=== PATIENT | female | born 1960 | race Caucasian/White ===

== ENCOUNTER 2019-08-28 08:52 | Outpatient (CLI) | payer OTHER, SELFPAY ==
--- NOTE | ~2019-08-28 | CT_ITS ---
EXAMINATION: CT lung screening DATE: 08/28/2019 09:10 INDICATION: Z87.891 Personal history of nicotine dependence TECHNIQUE: Computed tomography (CT) of the chest was performed without intravenous contrast utilizing a standard low-dose lung cancer screening protocol. Additional 3D reconstructions utilizing coronal maximum intensity projection (MIP) were performed. Automated exposure control and iterative reconstru ction technique were employed. The dose-length product was 292.09 mGy-cm. COMPARISON: 10/13/2016 FINDINGS: Mild paraseptal emphysema at the apices of the lungs. 3 small nodules measuring up to 2 mm at the ant erior right apex which are unchanged since 2017 consistent with noncalcified granulomata. No new or e nlarging pulmonary nodules identified. No pneumonia, pulmonary edema, pleural effusion or pneumothora x. Heart size is normal. Atherosclerotic coronary artery calcification. No pericardial effusion. Thor acic aorta is normal in caliber. No pathologically enlarged thoracic lymphadenopathy. Diffuse hepatic steatosis with geographic regions of focal sparing. Thoracic dextroscoliosis with severe spondylosis . IMPRESSION: 1. Lung-RADS category 2: Benign appearance or behavior. Continue annual screening with noncontrast lo w-dose chest CT in 12 months. Reviewed, dictated and finalized at location A. ERECTOR IMPRESSION: 1. Lung-RADS category 2: Benign appearance or behavior. Continue annual screeni ng with noncontrast low-dose chest CT in 12 months.
== END 2019-08-28 08:53 | disposition home or self-care (01) ==
PROVIDERS: PCP Family Medicine; Visit Provider Family Medicine
DX: Z12.2 Encounter for screening for malignant neoplasm of respiratory organs (principal); Z87.891 Personal history of nicotine dependence
CPT/HCPCS: G0297

== ENCOUNTER 2019-09-17 10:17 | Outpatient (CLI) | payer OTHER, SELFPAY ==
--- NOTE | ~2019-09-17 | MM_ITS ---
EXAMINATION: MM screening [facility] [place] BI w dada HISTORY: Screening mammogram, family history of breast cancer in her mother. TECHNIQUE: Craniocaudal and mediolateral oblique 3-D tomosynthesis images were obtained and synthetic 2-D images were generated. CAD analysis was submitted and interpreted. COMPARISON: 08/30/2018, 08/30/2017, 08/22/2017, 02/16/2016 BREAST PARENCHYMAL COMPOSITION: There are scattered areas of fibroglandular density. FINDINGS: Biopsy changes are noted in both breasts. There is no evidence of suspicious mass, calcific ation, or architectural distortion to suggest malignancy in either breast. There has been no suspicio us interval change. IMPRESSION: 1. No mammographic evidence of malignancy. 2. Recommend routine screening mammography in one year. BI-RADS Category 2: Benign finding(s). Reviewed, dictated and finalized at location A.
== END 2019-09-17 10:18 | disposition home or self-care (01) ==
LOC: ANHIMG 10:20
PROVIDERS: PCP Family Medicine; Visit Provider Family Medicine
DX: Z12.31 Encounter for screening mammogram for malignant neoplasm of breast (principal)
CPT/HCPCS: 77063; 77067

== ENCOUNTER 2020-06-12 13:29 | Outpatient (CLI) | payer OTHER, SELFPAY ==
--- NOTE | 2020-06-12 13:43 | ECHO_ITS ---
Patient Info Name: Corrine Zimmer Age: 60 years : 1960 Gender: Female Ht: 68 in Wt: 255 lbs BSA: 2.41 m2 HR: 103 bpm BP: 141 / 71 mmHg Heart Rhythm: Sinus Rhythm Technical Quality: Fair Exam Date: 06/12/2020 1:52 PM Exam Location: [facility] Pul[facility] Patient Status: Outpatient Admit Date: 06/12/2020 Staff Ordering Physician: Radha Howell NP Stereo Compiler: Gina Mckeon RCS Attending Provider: Radha Howell NP Referring Physician: Lynda HERNANDEZ; Exam Type: CA echo doppler color flow Study Info Indications R60.0 - Localized edema Complete two-dimensional, color flow and Doppler transthoracic echocardiogram is performed. Summary 1. Complete two-dimensional, color flow and Doppler transthoracic echocardiogram is performed. 2. Left ventricular chamber dimension is normal. 3. Left ventricular systolic function is normal, estimated at 60-65%. 4. There is mildly increased left ventricular wall thickness. 5. The left ventricular diastolic function is grade I diastolic dysfunction. 6. E/e' 7 is not elevated. 7. There is mild aortic valve sclerosis. Left Ventricle E/e' 7 is not elevated. Left ventricular chamber dimension is normal. Left ventricular systolic function is normal, estimated at 60-65%. There is mildly increased left ventricular wall thickness. The left ventricular diastolic function is grade I diastolic dysfunction. Right Ventricle Right ventricular chamber dimension is normal. Right ventricular systolic function is normal. Left Atria Left atrial chamber dimension is normal. Right Atria Right atrial chamber dimension is normal. Aortic Valve The aortic valve is probable trileaflet. There is mild aortic valve sclerosis. There is no aortic valve stenosis. There is no aortic valve regurgitation. Pulmonic Valve There is no pulmonic regurgitation. Mitral Valve There is no mitral valve stenosis. There is no mitral valve regurgitation. Tricuspid Valve There is no tricuspid valve regurgitation. Pericardium/Pleural There is no pericardial effusion. Inferior Vena Cava Inferior vena cava is not well visualized. Aorta The aortic root size at the sinus of Valsalva is not well visualized. Left Ventricular Outflow Tract Name Value Normal LVOT 2D LVOT Diameter 2.0 cm LVOT Doppler LVOT Peak Gradient 6 mmHg LVOT Mean Gradient 3 mmHg LVOT VTI 23 cm LVOT VTI/AV VTI Ratio 0.9 LVOT Stroke Volume 72 ml LVOT CO 6.8 l/min LVOT CI 2.8 l/min/m2 Mitral Valve Name Value Normal MV Doppler MV Decel [place] 249 cm/s2 MV PHT 68 ms
== END 2020-06-12 13:30 | disposition home or self-care (01) ==
PROVIDERS: PCP Family Medicine; Visit Provider Nurse Practitioner Family
DX: R60.0 Localized edema (principal); R06.00 Dyspnea, unspecified
CPT/HCPCS: 93306

== ENCOUNTER → 2021-01-22 13:17 | Outpatient (CLI) | payer OTHER, SELFPAY ==
--- NOTE | ~2021-01-22 | CT_ITS ---
EXAMINATION:CT lung screening DATE: 01/22/2021 13:33 INDICATION: Nicotine dependence, cigarettes, uncomplicated. Current smoker with 40 pack year history. TECHNIQUE: Computed tomography (CT) of the chest was performed without intravenous contrast. Automate d exposure control and iterative reconstruction technique were employed. The dose-length product (DLP ) was 315.41 mGy-cm. COMPARISON: Chest CT 08/28/2019 FINDINGS: There is mild emphysema. There are 4 nodules in right upper lobe measuring up to 3 mm, stab le from 08/28/2019. No pleural effusion. The heart size is normal. There are coronary artery calcifica tions. No pericardial effusion. There is diffuse hepatic steatosis. There is severe thoracic spondylo sis. Thoracic dextroscoliosis noted. IMPRESSION: 1. Lung-RADS category 2: Benign appearance or behavior. Continue annual screening with noncontrast lo w-dose chest CT in 12 months. Reviewed, dictated and finalized at location A. IMPRESSION: 1. Lung-RADS category 2: Benign appearance or behavior. Continue annual screeni ng with noncontrast low-dose chest CT in 12 months.
--- NOTE | ~2021-01-22 | MM_ITS ---
EXAMINATION: MM screening [place] BI w dada HISTORY: Screening mammogram, family history of breast cancer in her mother. TECHNIQUE: Craniocaudal and mediolateral oblique 3-D tomosynthesis images were obtained and synthetic 2-D images were generated. CAD analysis was submitted and interpreted. COMPARISON: 09/17/2019, 08/30/2018, 08/30/2017, 08/22/2017 BREAST PARENCHYMAL COMPOSITION: There are scattered areas of fibroglandular density. FINDINGS: Stable biopsy changes are noted in the breasts. There is no evidence of suspicious mass, ca lcification, or architectural distortion to suggest malignancy in either breast. There has been no lovett spicious interval change. IMPRESSION: 1. No mammographic evidence of malignancy. 2. Recommend routine screening mammography in one year. BI-RADS Category 2: Benign finding(s). Reviewed, dictated and finalized at location A.
== END ==
PROVIDERS: PCP Family Medicine; Visit Provider Family Medicine
DX: Z12.2 Encounter for screening for malignant neoplasm of respiratory organs (principal); Z12.31 Encounter for screening mammogram for malignant neoplasm of breast
CPT/HCPCS: 71271; 77063; 77067

== ENCOUNTER → 2022-07-06 10:50 | Outpatient (CLI) | payer OTHER, SELFPAY ==
--- NOTE | ~2022-07-06 | CT_ITS ---
EXAMINATION: CT lung screening DATE: 07/06/2022 11:10 INDICATION: Personal history nicotine dependence, current smoker with 40 pack year history TECHNIQUE: Computed tomography (CT) of the chest was performed without intravenous contrast. The dose -length product (DLP) was 247.71 mGy-cm. Automated exposure control and iterative reconstruction tech [employer]ze were employed. COMPARISON: 01/22/2021 FINDINGS: There is mild emphysema. Stable nodules of the right upper lobe measure up to 3 mm. No new pulmonary nodules are identified. The heart size is normal. No pleural effusion or pneumothorax. The liver is diffusely low in attenuation when compared with the spleen, consistent with hepatic steatosi s. There is severe thoracic spondylosis. Calcified coronary artery atherosclerosis is noted. IMPRESSION: 1. Lung-RADS category 2: Benign appearance or behavior. Continue annual screening with noncontrast lo w-dose chest CT in 12 months. Reviewed, dictated and finalized at location L. NT CARE TECHNICIAN IMPRESSION: 1. Lung-RADS category 2: Benign appearance or behavior. Continue annual screeni ng with noncontrast low-dose chest CT in 12 months.
== END ==
PROVIDERS: PCP Family Medicine; Visit Provider Physician Assistant
DX: Z12.2 Encounter for screening for malignant neoplasm of respiratory organs (principal); Z87.891 Personal history of nicotine dependence
CPT/HCPCS: 71271

== ENCOUNTER → 2022-10-19 11:05 | Outpatient (CLI) | payer OTHER, SELFPAY ==
--- NOTE | ~2022-10-19 | MM_ITS ---
EXAMINATION: MM screening [place] BI w dada HISTORY: Screening mammogram TECHNIQUE: Craniocaudal and mediolateral oblique 3-D tomosynthesis images were obtained and synthetic 2-D images were generated. CAD analysis was submitted and interpreted. COMPARISON: 01/22/2021, 09/27/2019 bilateral screening mammogram examinations BREAST PARENCHYMAL COMPOSITION: There are scattered areas of fibroglandular density. FINDINGS: Stable postbiopsy changes of both breasts. History of bilateral benign breast biopsies. The re is no evidence of suspicious mass, calcification, or architectural distortion to suggest malignanc y in either breast. There has been no suspicious interval change. IMPRESSION: 1. No mammographic evidence of malignancy. 2. Recommend routine screening mammography in one year. BI-RADS Category 2: Benign finding(s). Reviewed, dictated and finalized at location A.
== END ==
PROVIDERS: PCP Family Medicine; Visit Provider Physician Assistant
DX: Z12.31 Encounter for screening mammogram for malignant neoplasm of breast (principal)
CPT/HCPCS: 77063; 77067

== ENCOUNTER 2023-08-22 13:18 | Emergency (ER) | payer OTHER, SELFPAY ==
--- NOTE | ~2023-08-22 | XR_ITS ---
EXAMINATION: XR chest 2V DATE: 08/22/2023 14:42 INDICATION: Chest pain. TECHNIQUE: Frontal and lateral views of the chest were obtained. COMPARISON: Chest 2 views 03/18/2019 FINDINGS: There is mild atelectasis in lingula. No pleural effusion or pneumothorax. The heart size i s normal. IMPRESSION: 1. Mild atelectasis in lingula. Reviewed, dictated and finalized at location A. P METAL PROCESSING WORKER
--- NOTE | 2023-08-22 13:21 | ECG_ITS ---
Measurements Intervals [place] Rate: 82 P: 48 DC: 190 QRS: 67 QRSD: 98 T: 44 QT: 381 QTc: 445 Interpretive Statements SINUS RHYTHM POSSIBLE RIGHT VENTRICULAR CONDUCTION DELAY [RSR (QR) IN V1/V2] BORDERLINE ECG COMPARED TO ECG 03/18/2019 12:35:04 A MINOR RV CONDUCTION ABNORMALITY IS NOW SEEN Electronically Signed On 08-22-2023 15:15:01 CHAPTER RELATIONS ADMINISTRATOR by Roberto Francis M.D.
[2023-08-22 13:25] VITALS: BP 144/75; PULSE 90; RESP 16; TEMP 36.6; O2SAT 100
[2023-08-22 13:45] LABS: Basophils Absolute Auto 0.1 K/mm3 (0.0-0.1); Basophils Percent Auto 0.4 % (0.2-1.2); Eosinophils Absolute Auto 0.2 K/mm3 (0-0.3); Eosinophils Percent Auto 1.4 % (0-4.4); Hematocrit 45.6 % (37.0-47.0); Hemoglobin 14.7 g/dL (12.0-15.0); Immature Granulocyte Absolute 0.06 K/mm3 (0.00-0.031); Immature Granulocyte Percent A 0.5 % (0-0.5); Lymphocytes Absolute Auto 3.75 K/mm3 (0.9-3.2); Lymphocytes Percent Auto 31.4 % (18.3-44.2); Mean Corpuscular HGB Conc 32.2 g/dl (32-36); Mean Corpuscular Hemoglobin 31.8 pg (26-34); Mean Corpuscular Volume 98.7 fl (80-100); Mean Platelet Volume 8.8 fl (7.4-10.4); Monocytes Absolute Auto 0.8 K/mm3 (0.1-0.6); Neutrophils Absolute Auto 7.1 K/mm3 (1.3-6.7); Neutrophils Percent Auto 59.3 % (45.5-73.1); Platelet Count Result 301 k/mm3 (150-375); Red Blood Count 4.62 M/mm3 (4.2-5.4); Red Cell Distribution Width 13.9 % (11.5-14.5)
[2023-08-22 13:58] LABS: Alanine Aminotransferase 32 U/L (6-35); Albumin Level 4.3 g/dL (3.5-5.1); Alkaline Phosphatase 72 U/L (38-126); Anion Gap 9 mmol/L (8-16); Aspartate Amino Transferase 26 U/L (14-36); Bilirubin,Total 0.5 mg/dL (0.2-1.3); Blood Urea Nitrogen 18 mg/dL (7-17); Carbon Dioxide 22 mmol/L (22-30); Chloride 104 mmol/L (98-107); Estimated CRCL calculation 82 ml/min; Estimated Glomerular Filt Rate > 60; Glucose 214 mg/dL (65-110); Lipase 138 U/L (23-300); Sodium 135 mmol/L (137-145)
[2023-08-22 14:00] LABS: INR 0.9; Prothrombin Time 12.9 Seconds (11.1-14.7)
[2023-08-22 14:01] LABS: Partial Thromboplastin Time 25.1 SECONDS (22.3-36.8)
[2023-08-22 14:10] LABS: Troponin I < 0.012 ng/mL (0.000-0.034)
--- NOTE | 2023-08-22 15:06 | ED.CHESTPAIN ---
HPI - Chest Pain General Chief Complaint: Chest Pain <STACEY Monte Last Filed: 08/22/23 15:19> Stated Complaint: chest pain, headache <STACEY Monte Last Filed: 08/22/23 15:19> Time Seen by Provider: 08/22/23 15:06 <STACEY Monte Last Filed: 08/22/23 15:19> Focused HPI: Patient is a 63 y/o female, with PMH of DM, HTN, HLD, smoking, who presents to the ED with c/o CP. Patient reports she woke up this morning feeling unwell. States she developed pain in her chest around 11am, which radiated through to her back and R shoulder blade and up into her neck. States pain is improved currently but still present slightly. No aggrv/alleviated factors. No aggravation with exertion. No shortness of breath. She also reported having slight discomfort in her epigastric region upon arrival to the ED, nausea, ANDERSON, and fogginess. Reports she has been seen in the ED for similar symptoms in the past, which have been related to acid reflux. Denies SOB, vomiting, cough, cold sx's. GENERAL: Elderly, obese with BMI of 37.2, and in no acute distress. HEAD: Normocephalic, atraumatic. CHEST: Clear to auscultation. ?No respiratory distress. HEART: Regular rate and rhythm.? ABD: No tenderness throughout abdomen. MSK: No chest wall tenderness to palpation. NEURO: ?Alert and oriented x3. Patient screened in triage and initial orders placed.? ?Additional care and disposition to be based upon?diagnostic testing and treatment. <STACEY Monte Last Filed: 08/22/23 15:19> Related Data Home Medications: Home Medications Medication Instructions Recorded Confirmed aspirin 81 mg chewable tablet 81 mg PO DAILY 07/19/19 09/20/22 garlic 1,000 mg capsule 1,000 mg PO DAILY 07/19/19 09/20/22 Fish Oil 1 tab-cap PO DAILY 09/20/22 09/20/22 Vitamin C 1 tab-cap PO DAILY 09/20/22 09/20/22 Vitamin D3 1 tab-cap PO DAILY 09/20/22 09/20/22 vitamin E 1 cap PO DAILY 09/20/22 09/20/22 <Annamaria Smith PA-C - Last Filed: 08/22/23 15:19> Allergies/Adverse Reactions: Allergies Allergy/AdvReac Type Severity Reaction Status Date / Time clavulanic acid Allergy Severe Itching Verified 09/20/22 13:29 amoxicillin Allergy Unknown Itching Verified 09/20/22 13:29 codeine Allergy Unknown Nausea Verified 09/20/22 13:29 lisinopril Allergy Unknown Cough Verified 09/20/22 13:29 <Annamaria Smith PA-C - Last Filed: 08/22/23 15:19> Review of Systems Review of Systems: All systems reviewed & are unremarkable except as noted in HPI and below <Donna Navarro MD - Last Filed: 08/22/23 17:14> [facility] Past Medical History Medical History: Medical History Anxiety Chronic midline low back pain with bilateral sciatica Essential (primary) hypertension Fibrous tissue neoplasm of skin Lung nodules Obstructive sleep apnea of adult Tobacco use disorder Type 2 diabetes mellitus with complication, without long-term current use of insulin <Annamaria Smith PA-C - Last Filed: 08/22/23 15:19> Surgical History Surgical History: Surgical History H/O lumbar discectomy 1988 H/O right breast biopsy History of colonoscopy with polypectomy (~09/2010) History of lumpectomy of left breast 2019 History of partial hysterectomy History of sinus surgery <Annamaria Smith PA-C - Last Filed: 08/22/23 15:19> Family History Family History: Family History Mother Family history of Alzheimer's disease Family history of malignant neoplasm of breast in first degree relative Father Family history of diabetes mellitus in first degree relative Family history of heart disease in male family member before age 55 Diabetes mellitus Family history of cardiovascular disease Sibling Family history of malignant ne
[2023-08-22 15:11] VITALS: BP 147/88; PULSE 85; RESP 18; TEMP 36.5; O2SAT 99
[2023-08-22] MEDS: ASPIRIN 81 MG CHEWABLE TABLET 324 MG PO (15:27)
[2023-08-22] MEDS: BELLADONNA ALK/PHENOB ELIX 10 ML, MAG HYDROX/ALUMINUM HYD/SIMETH 30 ML, LIDOCAINE HCL 2... PO (15:27)
[2023-08-22 16:18] LABS: Influenza A QL RT-PCR Negative (Negative); Influenza B QL RT-PCR Negative (Negative); RSV RNA, RT-PCR Negative (Negative); SARS-CoV-2 RNA PCR Negative (Negative)
--- NOTE | 2023-08-22 16:38 | ECG_ITS ---
Measurements Intervals [place] Rate: 73 P: 40 NM: 195 QRS: 67 QRSD: 95 T: 39 QT: 403 QTc: 446 Interpretive Statements SINUS RHYTHM LOW QRS VOLTAGE IN PRECORDIAL LEADS [QRS DEFLECTION < 1.0 mV IN CHEST LEADS] POSSIBLE RIGHT VENTRICULAR CONDUCTION DELAY [RSR (QR) IN V1/V2] COMPARED TO ECG 08/22/2023 13:26:51 NO SIGNIFICANT CHANGES Electronically Signed On 08-23-2023 14:55:07 PSYCH TECH by Alicia Garnica M.D.
[2023-08-22 17:03] LABS: Troponin I < 0.012 ng/mL (0.000-0.034)
[2023-08-22 17:47] VITALS: BP 130/70; PULSE 80; RESP 12; TEMP 36.6; O2SAT 98
== END 2023-08-22 17:48 | disposition home or self-care (01) ==
PROVIDERS: Emergency Medicine; Physician Assistant; Emergency Provider Emergency Medicine; PCP Family Medicine
DX: R07.89 Other chest pain (principal); Z20.822 Contact with and (suspected) exposure to COVID-19; E11.9 Type 2 diabetes mellitus without complications; I10 Essential (primary) hypertension; E78.5 Hyperlipidemia, unspecified; E66.9 Obesity, unspecified; Z68.37 Body mass index [BMI] 37.0-37.9, adult; G47.33 Obstructive sleep apnea (adult) (pediatric); F17.210 Nicotine dependence, cigarettes, uncomplicated; Z85.828 Personal history of other malignant neoplasm of skin; Z90.711 Acquired absence of uterus with remaining cervical stump; Z79.82 Long term (current) use of aspirin; Z79.84 Long term (current) use of oral hypoglycemic drugs; R94.31 Abnormal electrocardiogram [ECG] [EKG]
CPT/HCPCS: 36415; 71046; 80053; 83690; 84484; 85025; 85610; 85730; 87637; 93005; 99284; A9270

== ENCOUNTER 2023-09-26 08:38 | Outpatient (CLI) | payer OTHER, SELFPAY ==
--- NOTE | ~2023-09-26 | NM_ITS ---
EXAMINATION: NM da stress w perfusion DATE: 09/26/2023 12:26 INDICATION: Chest pain TECHNIQUE: Rest images were obtained following intravenous administration of 9.7 mCi Tc99m tetrofosmi n (Myoview). The patient was infused intravenously with Lexiscan (Regadenoson). Then, 29.8 mCi Tc99m tetrofosmin (Myoview) was administered intravenously, and stress images were obtained. Data was recon structed into short axis and horizontal and vertical long axis SPECT images. Gated SPECT images were also obtained. COMPARISON: None. FINDINGS: There is no definite reversible or fixed perfusion abnormality to suggest ischemia or infar ction. There is normal left ventricular chamber size, wall motion and ejection fraction. Left ventr icular ejection fraction measures 68%. IMPRESSION: 1. Normal myocardial perfusion at rest and during stress. 2. Left ventricular ejection fraction measuring 68%. Reviewed, dictated and finalized at location A.
--- NOTE | 2023-09-26 08:51 | EST_ITS ---
Patient Info Name: Corrine Zimmer Age: 63 years : 1960 Gender: Female Ht: 68 in Wt: 241 lbs BSA: 2.33 m2 HR: 85 bpm BP: 127 / 88 mmHg Heart Rhythm: Sinus Rhythm Exam Date: 09/26/2023 10:00 AM Exam Location: Echo Lab Patient Status: Outpatient Admit Date: 09/26/2023 Staff Ordering Physician: Nicki Jose PA-C Attending Provider: Nicki Jose PA-C Exercise Technologist: Paige Parrish CT Exercise Physician: Branden Handley DO Exam Type: CA stress da w NM Study Info Indications R07.89 - Other chest pain A regadenoson stress test was performed. Summary 1. 1. Negative lexiscan stress test for ischemic ST changes by ECG criteria. 2. 2. Stable hemodynamics throughout the test. 3. 3. Nuclear scan to follow and will be reported separately. Please correlate with it. 4. 4. Patient informed of the above results. Protocol: Lexiscan Stress ECG Details Stage: REST Duration (min): 7 min : 41 sec HR (bpm): 85 SBP (mmHg): 127 DBP (mmHg): 78 Stage: REST Duration (min): 24 min : 59 sec HR (bpm): 85 SBP (mmHg): 127 DBP (mmHg): 78 Stage: STAGE 1 Duration (min): 1 min : 0 sec HR (bpm): 85 SBP (mmHg): 128 DBP (mmHg): 80 Stage: RECOVERY Duration (min): 1 min : 0 sec HR (bpm): 100 SBP (mmHg): 128 DBP (mmHg): 80 Stage: RECOVERY Duration (min): 2 min : 0 sec HR (bpm): 99 SBP (mmHg): 128 DBP (mmHg): 80 Stage: RECOVERY Duration (min): 3 min : 0 sec HR (bpm): 97 SBP (mmHg): 138 DBP (mmHg): 74 Stage: RECOVERY Duration (min): 3 min : 23 sec HR (bpm): 97 SBP (mmHg): 138 DBP (mmHg): 74 Rest HR: 85 bpm Peak HR: 103 bpm Rest Sys BP: 127 mmHg Peak Sys BP: 138 mmHg Max Pred HR: 157 bpm % Max Pred HR: 66 % Target HR: 133 bpm Max RPP: 14,214 bpm*mmHg Termination Reason: Completed protocol Cardiac Symptoms: Shortness of breath Total Time: 1 min : 0 sec Rest Bruce BP: 78 mmHg Peak Bruce BP: 74 mmHg Total Dose: 0.4 mg Resting ECG Sinus rhythm, IRBBB. Stress ECG No ST changes. Arrhythmias None. Report Signatures
== END 2023-09-26 08:39 | disposition home or self-care (01) ==
PROVIDERS: PCP Family Medicine; Visit Provider Physician Assistant
DX: R07.89 Other chest pain (principal); I10 Essential (primary) hypertension; E11.8 Type 2 diabetes mellitus with unspecified complications; F17.200 Nicotine dependence, unspecified, uncomplicated
CPT/HCPCS: 78452; 93017; A9502; J2785

== ENCOUNTER 2024-02-14 14:15 | Outpatient (CLI) | payer OTHER, SELFPAY ==
--- NOTE | ~2024-02-14 | CT_ITS ---
CT Scan of the Chest without Contrast: Clinical Indication: Lung cancer screening, nicotine dependence Technique: Contiguous sections were acquired throughout the chest without intravenous contrast. Dose reduction technique was used on this scan by utilizing automated exposure control and iterative recon struction technique. The dose-length product (DLP) was 160.66 mGy-cm. COMPARISON: 07/06/2022 Findings: There is no evidence of any significant mediastinal, hilar or axillary lymphadenopathy. Coronary odalys ry calcifications are present. There is no evidence of pleural or pericardial effusion. The lungs are clear, aside from stable focal scarring at the lingula. Images through the upper abdomen reveal no abnormalities. Impression: Lung RADS 1: Negative. 12 month follow-up screening CT advised. Reviewed, dictated and finalized at location . Impression: Lung RADS 1: Negative. 12 month follow-up screening CT advised.
== END 2024-02-14 14:16 ==
LOC: MICIMG 14:16
PROVIDERS: PCP Family Medicine; Visit Provider Physician Assistant Medical
DX: Z12.2 Encounter for screening for malignant neoplasm of respiratory organs (principal); F17.210 Nicotine dependence, cigarettes, uncomplicated
CPT/HCPCS: 71271

== ENCOUNTER 2024-07-10 11:29 | Outpatient (CLI) | payer OTHER, SELFPAY ==
--- NOTE | ~2024-07-10 | MM_ITS ---
EXAMINATION: MM screening [place] BI w dada HISTORY: Screening mammogram, family history of breast cancer in her mother. TECHNIQUE: Craniocaudal and mediolateral oblique 3-D tomosynthesis images were obtained and synthetic 2-D images were generated. CAD analysis was submitted and interpreted. COMPARISON: 10/19/2022, 01/22/2021, 09/17/2019 BREAST PARENCHYMAL COMPOSITION:Not Dense. There are scattered areas of fibroglandular density. FINDINGS: Stable small right breast mass with adjacent biopsy clip. No suspicious mass, calcification , or architectural distortion are identified in either breast to suggest malignancy. There has been n o suspicious interval change. IMPRESSION: No mammographic evidence of malignancy. Recommend routine screening mammography in one year. BI-RADS Category 2: Benign finding(s). Reviewed, dictated and finalized at location . ITY IMPROVEMENT CONSULTANT
== END 2024-07-10 11:30 | disposition home or self-care (01) ==
LOC: MICIMG 11:29
PROVIDERS: PCP Family Medicine; Visit Provider Family Medicine
DX: Z12.31 Encounter for screening mammogram for malignant neoplasm of breast (principal)
CPT/HCPCS: 77063; 77067

== ENCOUNTER 2025-01-01 00:27 | Day surgery (SDC) | payer OTHER, SELFPAY ==
[2024-12-25 10:22] VITALS: BMI 35.9
[2025-01-01 07:24] VITALS: BP 149/66; PULSE 91; RESP 20; TEMP 36.7; O2SAT 99; BMI 36.5
--- NOTE | 2025-01-01 07:58 | P.PNAN_ITS ---
Anes - Eval Final PreProcedure Day of Procedure 01/01/25 07:58 Patient weight: obese Heart: regular rate and rhythm Lungs: decreased breath sounds Airway: Mallampati scale class II Neurological: alert and oriented Last oral intake: >/= 8 hours ASA classification: III Emergent: no Anesthetic plan: proceed Anesthesia type and monitoring: general GIVS and standard monitoring Results Review: All pre-operative results and documents have been reviewed as part of the pre- operative evaluation. Informed Consent: The patient's anesthetic plan and its attendant risks and benefits were discussed with the patient/family/POA. Questions were solicited and answers provided to the satisfaction of the patient/family/POA.
[2025-01-01] MEDS: LACTATED RINGERS 1,000 ML 150 ML IV CONT (07:59)
[2025-01-01 08:02] LABS: Glucose Point of Care 173 mg/dl (65-105)
--- NOTE | 2025-01-01 08:16 | PM.IMHP ---
H&P: HPI History of Present Illness Date/Time: 01/01/25 08:16 Chief Complaint: Screening colonoscopy Narrative: This is the patient's 2nd colonoscopy. There are no GI symptoms and there is no family history of colorectal cancer. Review of Systems Review of Systems: All systems reviewed & are unremarkable except as noted in HPI and below PMFSH Past Medical History Medical History Lung nodules Anxiety Tobacco use disorder Chronic midline low back pain with bilateral sciatica Essential (primary) hypertension Obstructive sleep apnea of adult Type 2 diabetes mellitus with complication, without long-term current use of insulin Fibrous tissue neoplasm of skin Surgical History Surgical History History of sinus surgery History of partial hysterectomy History of colonoscopy with polypectomy (~09/2010) History of lumpectomy of left breast 2018 H/O lumbar discectomy 1988 H/O right breast biopsy Family History Family History Mother Family history of Alzheimer's disease Family history of malignant neoplasm of breast in first degree relative Father Family history of diabetes mellitus in first degree relative Family history of heart disease in male family member before age 55 Diabetes mellitus Family history of cardiovascular disease Sibling Family history of malignant neoplasm of esophagus Other Carcinoma of colon Family history of Parkinson's disease Family history of malignant neoplasm Family history of throat cancer Family history of tuberculosis Social History Social History Social History: Smoking packs per day: 1 Smoking cigarettes per day: 20.0 Years smoked: 40 Smoking pack-years: 40.00 Smoking status: Current some day smoker Tobacco type: cigarettes Second hand tobacco smoke exposure: Yes Alcohol intake: never Substance use: never Substance use type: does not use Do You Feel Safe in your Home?: Yes Lack of Transportation: No Lack of Food: Never True Current Housing: I Have Housing Concerned About Future Housing: No Difficulty Paying Gas/Electric Bills: No Difficulty Paying for Meds: No Currently Unemployed: No Education: Don't Know Difficulty w/ Childcare or Family Care: No Living arrangements: with family Occupation/Education: occupation Gender identity (if verbalized by the patient): Female Sexual Orientation (if Verbalized by the Patient): Straight or Heterosexual Spiritual care concerns: No Agree to blood products: Yes Meds Home Medications and Allergies Home Medications ?Medication ?Instructions ?Recorded ?Confirmed ?Type aspirin 81 mg chewable tablet 81 mg PO DAILY 07/19/19 11/06/24 History garlic 1,000 mg capsule 1,000 mg PO DAILY 07/19/19 11/06/24 History Fish Oil 1 tab-cap PO DAILY 09/20/22 11/06/24 History alprazolam 0.25 mg tablet (Xanax) 0.25 mg PO .q8 hrs PRN anxiety #8 01/24/23 12/25/24 Rx tabs scopolamine base 1 mg over 3 days 1 patch transdermal Q3D PRN motion 11/07/23 12/25/24 Rx transdermal patch sickness #24 ea glimepiride 4 mg tablet See Rx Instructions .Route 01/19/24 01/01/25 Rx .COMPLEX #180 tabs losartan 100 See Rx Instructions .Route 04/16/24 01/01/25 Rx mg-hydrochlorothiazide 25 mg tablet .COMPLEX #90 tabs pioglitazone 30 mg tablet See Rx Instructions .Route 04/16/24 01/01/25 Rx .COMPLEX #90 tabs hydroxychloroquine 200 mg tablet 200 mg PO WEEKLY #12 tabs 07/09/24 01/01/25 Rx lovastatin 40 mg tablet See Rx Instructions .Route 07/13/24 01/01/25 Rx .COMPLEX #90 tabs semaglutide 1 mg/dose (4 mg/3 mL) 1 mg (0.75 mL) subcut WEEKLY #9 mL 07/23/24 01/01/25 Rx subcutaneous pen injector (Ozempic) Allergies Allergy/AdvReac Type Severity Reaction Status Date / Time clavulanic acid Allergy Severe Itching Verified 01/01/25 07:31 amoxicillin Allergy Unknown Itching Verified 01/01/25 07:31 lisinopril Allergy Unknown Cough Verified 01/01/25 07:31 codeine AdvReac Unknown Nausea Verified 01/01/25 07:31 Vital Signs Vital Signs - 24 hr 01/01/25 07:24 Temperature 98.1 F Pulse Rate 91 Respiratory Rate 20 Blood Pressure 149/66 H Pulse Oximetry 99 Oxygen Delivery Room Air Exam Const: General: cooperative and healthy appearing Resp: Effort & Inspection: normal respiratory effort and able to speak in complete sentences Auscultation: clear to auscultation bilaterally Cardio: Rate: regular rate Rhythm: regular rhythm GI: Inspection: normal to inspection GI Palp: No No hepatosplenomegaly present Auscultation: normal bowel sounds Rectal Exam: deferred Skin: General skin exam: normal color Psych: Appearance: grossly normal Mental Status: mental status grossly normal Assessment and Plan Assessment and plan (1) Encounter for screening for malignant neoplasm of colon: Code(s): Z12.11 - Encounter for screening for malignant neoplasm of colon Status: Acute Assessment and Plan: The patient is deemed a good candidate for the procedure. Consent signed. Will proceed.
--- NOTE | 2025-01-01 09:10 | S_PTH ---
PATIENT: Corrine Zimmer LOC: [facility] U#:[id number] AGE/SX: 64/F ROOM: RE01/01/[address]: Jossue Mcgraw MD : 1960 BED: DIS: 01/01/2025 SPEC #: [id number] RECD: 01/01/25 09:58 STATUS: CHEVY REQ #: [id number] LEATHA: 01/01/25 09:[address]: Jossue Mcgraw DEPT: [facility] Surgical RECD BY: Julianna Marquez ENTERED: 01/01/25 09:59 SP TYPE: Surgical OTHR DR: Zan Zimmer MD Tissues: A - Colon Polypectomy B - Colon Polypectomy C - Colon Polypectomy D - Colon Polypectomy Procedures: Hematoxylin and Eosin Stain Gross and Microscopic Level 4
[2025-01-01 09:11] VITALS: BP 121/62; PULSE 84; RESP 21; O2SAT 96
[2025-01-01 09:21] VITALS: BP 118/64; PULSE 80; RESP 18; O2SAT 96
[2025-01-01 09:31] VITALS: BP 111/63; PULSE 82; RESP 18; O2SAT 97
== END 2025-01-01 09:38 | disposition home or self-care (01) ==
PROVIDERS: PCP Family Medicine; Referring Provider Physician Assistant; Visit Provider Internal Medicine Gastroenterology
PROC: 0DJD8ZZ Inspection of Lower Intestinal Tract, Via Natural or Artificial Opening Endoscopic (ICD-10-PCS; CPT 45378; principal; 2025-01-01 08:30)
DX: Z12.11 Encounter for screening for malignant neoplasm of colon (principal); D12.3 Benign neoplasm of transverse colon; D12.2 Benign neoplasm of ascending colon; D12.4 Benign neoplasm of descending colon; D12.5 Benign neoplasm of sigmoid colon; K57.30 Diverticulosis of large intestine without perforation or abscess without bleeding; I10 Essential (primary) hypertension; E11.9 Type 2 diabetes mellitus without complications; F41.9 Anxiety disorder, unspecified; G89.29 Other chronic pain; M54.42 Lumbago with sciatica, left side; M54.41 Lumbago with sciatica, right side; G47.33 Obstructive sleep apnea (adult) (pediatric); F17.210 Nicotine dependence, cigarettes, uncomplicated; E66.9 Obesity, unspecified; Z68.36 Body mass index [BMI] 36.0-36.9, adult; Z79.82 Long term (current) use of aspirin; Z79.84 Long term (current) use of oral hypoglycemic drugs; Z79.85 Long-term (current) use of injectable non-insulin antidiabetic drugs; Z98.890 Other specified postprocedural states; Z98.1 Arthrodesis status; Z80.3 Family history of malignant neoplasm of breast; Z80.0 Family history of malignant neoplasm of digestive organs; Z80.1 Family history of malignant neoplasm of trachea, bronchus and lung; Z82.49 Family history of ischemic heart disease and other diseases of the circulatory system
CPT/HCPCS: 45385; 82948; 88305; J2003; J2704; J7120

== ENCOUNTER 2025-02-26 08:01 | Outpatient (CLI) | payer MEDICARE, SELFPAY ==
--- NOTE | ~2025-02-26 | CT_ITS ---
CLINICAL INDICATION: History of nicotine dependence COMPARISON: 02/14/2024. TECHNIQUE: Multiple contiguous axial images of the chest was performed without the administration of intravenous contrast. This CT examination was performed utilizing dose reduction techniques. DLP: 191 mGy-cm FINDINGS/OBSERVATIONS: LUNG:No discrete pulmonary nodules are identified. The lungs are clear. HEART: The heart is of normal size, without pericardial effusion. MEDIASTINUM: No pathologically enlarged or morphologically suspicious lymph nodes are identified within the mediastinum, bilateral axilla, within the soft tissues of the anterior chest wall. SOFT TISSUES OF THE CHEST: Unremarkable. BONES OF THE CHEST: Age-appropriate degenerative disease, without acute fracture. No lytic or blastic lesions are identified. IMPRESSION: Lung-RADS category 1: Negative. Continue annual screening with noncontrast low- dose chest CT in 12 months. Reviewed, dictated and finalized at location A.
== END 2025-02-26 08:02 | disposition home or self-care (01) ==
PROVIDERS: PCP Family Medicine; Visit Provider Physician Assistant
DX: Z12.2 Encounter for screening for malignant neoplasm of respiratory organs (principal); Z87.891 Personal history of nicotine dependence
CPT/HCPCS: 71271